=== PATIENT | male | born 1995 ===

== ENCOUNTER 2016-09-01 15:56 | Emergency (ER) | payer OTHER ==
[2016-09-01] MEDS ORDERED: KETOROLAC 30 MG/1 ML SDV IVP ONE (16:06)
[2016-09-01 16:10] VITALS: RESP 16; TEMP 98.6
--- NOTE | 2016-09-01 16:10 | EDPHY ---
H & P Time Seen by Provider: 09/01/16 15:56 HPI/ROS: CHIEF COMPLAINT: Low back pain HISTORY OF PRESENT ILLNESS: 21-year-old male presents to the emergency department by EMS from the [facility] with low back pain. The patient has a history of chronic low back pain "all of my life." He states that he felt fine earlier today and then he was lying in his bed and he tried to sit up to reach for something and felt immediate pain in his low back. He denies radicular symptoms in his lower legs. Denies chest pain or difficulty breathing. He feels that this is the same typical ongoing chronic back pain that he has had. He denies any other fall or trauma. He denies bowel or bladder incontinence. He has pain especially with movement. He denies chest pain or difficulty breathing. Denies abdominal pain. REVIEW OF SYSTEMS: Constitutional: No fever, no chills. Eyes: No double or blurry vision. ENT: No sore throat. Respiratory: No cough, no shortness of breath. Cardiac: No chest pain. Gastrointestinal: No abdominal pain, vomiting or diarrhea. Genitourinary: No dysuria. Musculoskeletal: Low back pain as above. No neck pain. Skin: No rashes. Neurological: No headache. (Ilana Watkins) Past Medical/Surgical History: Chronic low back pain, right shoulder dislocation (Ilnaa Watkins) Social History: Single, currently inmate at [facility] since June of 2016 (Ilana Watkins) Physical Exam: General Appearance: Alert, no distress. Eyes: Pupils equal and round. Extraocular motions are all intact. ENT: Mouth: Mucous membranes moist. Respiratory: No wheezing, rhonchi, or rales, lungs are clear to auscultation. Cardiovascular: Regular rate and rhythm. Gastrointestinal: Abdomen is soft and nontender, no masses, no rebound or guarding, bowel sounds normal. Neurological: Alert and oriented x 3, cranial nerves II through XII grossly intact Skin: Warm and dry, no rashes. Musculoskeletal: Nontender to palpate along cervical or thoracic spine. He has pain with palpation along the lumbar spine. No palpable crepitus or other bony abnormality. No swelling or ecchymosis noted. Extremities: Full range of motion and no peripheral edema. Straight leg raise is negative bilaterally. Full flexion and extension of his knees to his chest without difficulty. His reflexes are symmetrical for lower extremities. His gait is not tested. Psychiatric: Patient is oriented X 3, there is no agitation. (Ilana Watkins) Constitutional: Initial Vital Signs Temperature (C) 37.0 C 09/01/16 15:56 Heart Rate 78 09/01/16 15:56 Respiratory Rate 16 09/01/16 15:56 Blood Pressure 168/87 H 09/01/16 15:56 O2 Sat (%) 99 09/01/16 15:56 O2 Delivery Mode Room Air Allergies/Adverse Reactions: No Known Allergies Allergy (Unverified 09/01/16 16:05) Home Medications: Medication Instructions Recorded NK [No Known Home Meds] 09/01/16 Medical Decision Making ED Course/Re-evaluation: 21-year-old male presents to the emergency department with chronic low back pain. He feels that this is an acute exacerbation of his ongoing chronic back pain that he has had all of his life. There has been no known trauma or injury. He did not sustain a fall. He has been in residential for over 2 months. He typically takes nothing for his back pain. In route he received IV fentanyl and 5 mg of IV Valium. Patient was given 30 mg of IV Toradol. I do not think imaging studies are indicated as there was no reported trauma. I did speak with the nurse at the residential and the patient is welcome back to the residential. They asked that he not be discharged with narcotic medication or any muscle relaxers. The patient was given additional 5 mg of IV Valium. He was able to ambulate on his own. He will be discharged back to the residential. I do not think imaging studies are necessary. Patient has chronic ongoing back pain and he feels that this is same pain that he has had in the past. (Ilana Watkins) Differential Diagnosis: Back pain including but not limited to muscular pain, herniated disc, spine fracture, intra-abdominal causes and urinary tract infection. (Ilana Watkins) - Data Points Medications Given: Discontinued Medications Diazepam (Valium Injection) 5 mg IVP EDNOW ONE Stop: 09/01/16 17:00 Last Admin: 09/01/16 17:32 Dose: 5 mg Ketorolac Tromethamine (Toradol) 30 mg IVP EDNOW ONE Stop: 09/01/16 16:07 Last Admin: 09/01/16 16:18 Dose: 30 mg Departure - Departure Disposition: Home, Routine, Self-Care Clinical Impression: Back pain Qualifiers: Back pain location: low back pain Chronicity: chronic Back pain laterality: midline Sciatica presence: without sciatica Qualified Code(s): M54.5 - Low back pain Condition: Good Instructions: Back Pain (ED) Additional Instructions: Ibuprofen 600 mg every 8 hours for pain as directed. Return if you develop bowel or bladder incontinence, foot drop, or if you feel worse in any way. 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
[2016-09-01] MEDS ORDERED: DIAZEPAM 10 MG/2 ML SYR IVP ONE (16:59)
[2016-09-01 17:16] VITALS: BP 136/76; PULSE 68; O2SAT 97
== END 2016-09-01 17:52 | disposition home or self-care (01) ==
LOC: EDUNIT#
DX: M54.5 Low back pain (principal)
CPT/HCPCS: 96374; J1885